=== PATIENT | male | born 1940 | race Caucasian/White ===

== ENCOUNTER 2022-09-26 06:42 | Day surgery (SDC) | payer MEDICARE ==
[~2022-09-26] VITALS: Ht 177.8 cm; Wt 145.4 kg
[2022-09-26] VITALS (8 sets, daily range): BP systolic 110–151; BP diastolic 45–80
[~2022-09-26 06:42] MED LIST: ANDROGEL AD; FINA5TAB11 PO; FLO0.4C PO; LOSA1TAB41 PO
[2022-09-26] MEDS ORDERED: diphenhydrAMINE 25mg capsule PO PRN (07:20)
[2022-09-26] MEDS ORDERED: normal saline 1,000 ML IV SCH (07:20)
[2022-09-26] MEDS ORDERED: LORazepam 0.5 MG tablet PO PRN (07:20)
[2022-09-26] MEDS ORDERED: heparin 1,000unit/ml 10ml vial 10 ML ONE (07:38)
[2022-09-26] MEDS ORDERED: midazolam 1 mg/ML 2ml injection ONE (07:38)
[2022-09-26] MEDS ORDERED: verapamil 2.5 mg/ml inj IV ONE (07:38)
[2022-09-26] MEDS ORDERED: LIDOcaine 1% (10mg/ml) 2ml vial ONE (07:38)
[2022-09-26] MEDS ORDERED: fentaNYL/PF 50MCG/1 ML 2ML syringe ONE (07:38)
[2022-09-26] MEDS ORDERED: iohexol 350MG/ML 100ml bottle IV ONE (07:39)
[2022-09-26] MEDS ORDERED: nitroGLYCERIN-Tridil 50MG/D5W 250 ML IV ONE (07:39)
[2022-09-26] MEDS ORDERED: METO25TA6 PO (08:05)
[2022-09-26] MEDS ORDERED: GABA-530 PO (08:05)
[2022-09-26] MEDS ORDERED: ASPI81TA52 PO (08:05)
[2022-09-26] MEDS ORDERED: [UNRECOGNIZED DRUG - CODE] TOP (08:05)
[2022-09-26] MEDS ORDERED: ALFU10TA PO (08:05)
[2022-09-26] MEDS ORDERED: HYDR25TA5 PO (08:05)
[2022-09-26] MEDS ORDERED: BUDE0.5A3 NEB (08:05)
[2022-09-26] MEDS ORDERED: iohexol 350 MG/ML 50ML vial IV ONE (09:13)
[2022-09-26] MEDS ORDERED: HYDROcodone/acetaminophen 5mg/325mg tablet PO PRN (10:00)
== END 2022-09-26 12:00 | disposition home or self-care (01) ==
LOC: SSTAY O 06:42
PROVIDERS: ATTEND Student in an Organized Health Care Education/Training Program
DX: R94.39 Abnormal result of other cardiovascular function study (principal); I10 Essential (primary) hypertension; G47.33 Obstructive sleep apnea (adult) (pediatric); Z79.899 Other long term (current) drug therapy; Z79.82 Long term (current) use of aspirin; Z88.8 Allergy status to other drugs, medicaments and biological substances
CPT/HCPCS: 93005; 93458; 99152; 99153; C1769; C1894; J1644; J2250; J3010; J3490; J7030; Q0163; Q9967; A6258